=== PATIENT | female | born 1940 | race American Indian/Alaskan Native ===

== ENCOUNTER 2016-08-06 13:00 | Outpatient (CLI) | payer MEDICARE ==
[2016-08-06 13:59] LABS: Blood Urea Nitrogen 18 mg/dL (7-17)
--- NOTE | 2016-08-06 15:56 | Magnetic Resonance Report ---
MRI LUMBAR SPINE WITH AND WITHOUT CONTRAST HISTORY: Back pain, myalgia. TECHNIQUE: axial T1, T2. sagittal T1,T2, STIR. T1 fat-sat contrast imaging. COMPARISON: none. FINDINGS: The conus terminates at L1. No signal abnormality or mass. There is 4 mm anterolisthesis of L4 with respect to L5. No pars defect. This appears to be secondary to degenerative facet arthropathy. Normal height of the lumbar vertebra. The facet joints are in appropriate relationship. There is fatty change within the L5 vertebral body and superior sacrum which may be related to previous radiation therapy. Please correlate with the patient's history. No acute fracture or suspicious bone lesion. The paraspinal soft tissues are unremarkable. No abnormal enhancement following IV gadolinium. L1-2: No significant abnormality. L2-3: There is a moderate diffuse posterior bulging disc and moderate to large left paracentral disc and with mass effect on the thecal sac and nerve roots. Mild facet arthropathy and moderate hypertrophy ligamentum flavum. Moderate canal stenosis measuring 5-6 mm in AP dimension. Bilateral neural foraminal narrowing is estimated at 50%. L3-4: A mild circumferential bulging disc, mild facet arthropathy and mild hypertrophy ligamentum flavum are identified. There is mild central canal narrowing measuring 7 mm moderate bilateral neural foraminal narrowing estimated at 50%. The left side appears more affected. L4-5: Grade 1 anterolisthesis is again noted. There is no significant bulging disc. Moderate facet arthropathy and moderate hypertrophy of ligamentum flavum. Moderate severe central canal stenosis measuring 6-7 mm in AP dimension. Bilateral neural foraminal narrowing is estimated at 50%. L5-S1: No significant abnormality. IMPRESSION: Lumbar spondylosis as described. Grade 1 anterolisthesis of L4 with respect L5. Multilevel central canal narrowing as outlined above. L2-3 appears to be the most affected level where there is a moderate to large left paracentral disc protrusion.
== END 2016-08-06 13:01 | disposition home or self-care (01) ==
LOC: MRI 13:00
PROVIDERS: ATTEND General Practice
DX: M48.06 Spinal stenosis, lumbar region (principal); M12.88 Other specific arthropathies, not elsewhere classified, other specified site; M24.28 Disorder of ligament, vertebrae; C18.9 Malignant neoplasm of colon, unspecified; I10 Essential (primary) hypertension; E11.9 Type 2 diabetes mellitus without complications
CPT/HCPCS: 36415; 72158; 82565; 84520; A9577

== ENCOUNTER 2019-06-22 09:37 | Day surgery (SDC) | payer MEDICARE ==
[~2019-06-22 09:37] MED LIST: SODIUM CHLORIDE 0.9% 1000 ML 1,000 ML IV SCH
--- NOTE | 2019-06-22 10:33 | Anesthesia Consultation ---
Anesthesia Consult and Med Hx Date of service: 06/22/19 - Airway Anesthetic Teeth Evaluation: Dentures ROM Head & Neck: Adequate Mental/Hyoid Distance: Adequate Mallampati Class: Class III Intubation Access Assessment: Probably Good - Pulmonary Exam CTA: Yes - Cardiac Exam Cardiac Exam: RRR - Pre-Operative Health Status ASA Pre-Surgery Classification: ASA3 Proposed Anesthetic Plan: MAC - Pulmonary Hx Smoking: Yes (Former 3 PPD X 20 YRS, QUIT IN 1974) Hx Asthma: Yes (no recent inhaler use) Hx Sleep Apnea: No - Cardiovascular System Hx Hypertension: Yes Hx Heart Attack/AMI: Yes (6 yrs ago; follows with well logger. 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 Last dose ASA 06/20/2019.
--- NOTE | 2019-06-22 10:33 | Anesthesia Day of Surgery ---
Anesthesia Day of Surgery - Day of Surgery Patient Examined: Yes Patient H&P Reviewed: Yes Patient is NPO: Yes
[2019-06-22] MEDS ORDERED: WATER FOR IRRIG STERILE 250 ML BOTTLE IR ONE (10:41)
[2019-06-22] MEDS ORDERED: PROPOFOL 200 MG/20 ML VIAL IV ONE ×2 (10:48→13:22)
[2019-06-22] MEDS ORDERED: WATER FOR IRRIG STERILE 1,000 ML BOTTLE ONE (12:26)
[2019-06-22] MEDS ORDERED: LIDOCAINE MPF (2%) 20 MG/1 ML VIAL 5 ML ONE (13:00)
--- NOTE | 2019-06-22 13:31 | Operative Report ---
Operative Report Operative Report: Procedure: Colonoscopy with Multiple Snare polypectomies, submucosal injection with elevation of colon polyp. Attending physician: Iain Osman M.D. Coal Washer Tender: Iain Osman M.D. Indication: Patient is a 79-year-old female who presents for screening colonoscopy, because of family history of colon cancer. This colonoscopy serves to evaluate patient so that treatment may be directed based on the findings. Patient has a partial colon resection with a colostomy and is considering a rev ersal of the colostomy. Consent: Informed consent was obtained after advising the patient and family regarding nature of this procedure, its indications, potential benefits as well as possible complications including but not limited to bleeding perforation and adverse reaction to medication, infection as well as other cardiopulmonary complications. An informed written and verbal consent was then obtained after due opportunity was provided for questions and answers. Monitoring: Patient was monitored continuously with pulse oximetry and electrocardiographic recordings as well as blood pressure recordings. Vital signs remained stable throughout this procedure with no untoward events. Preoperative assessment: Patient was assessed immediately prior to this procedure for capacity to tolerate monitored anesthesia care and moderate sedation as well as general anesthesia. Patient's ASA classification is 2, Mallampati class is 2, Hyomental distance is 3. Instrument: Olympus video colonoscope.: CF-HQ 190L Medications: Propofol given intravenously in divided doses. For details please refer to anesthesia records. Description of procedure: Patient was placed in a supine position after achieving sedation, a digital inspection/ examination of the colostomy introitus was performed following which the colonoscope was introduced into the colon and advanced to the cecum which was identified by the cecal valve, the appendiceal orifice, as well as by the cecal strap and direct transillumination. The colonoscope was subsequently withdrawn with careful inspection of all mucosal surfaces. Patient tolerated this procedure well and was subsequently taken to the recovery room. The following findings were noted. Findings: The preparation was adequate. Patient had a flat polyp seen in the transverse colon measuring approximately 1 cm this was elevated with submucosal injection of saline and removed by snare electrocautery and retrieved. There was another sessile polyp measuring approximately 1 cm which again was easily removed by snare electrocautery and retrieved. In the ascending colon, there was a polyp measuring approximately 8 mm. This was flat. It was elevated with submucosal injection of saline and removed by snare electrocautery and retrieved. The colostomy appeared normal. There were no additional lesions seen. Impression: Ascending colon polyp status post snare polypectomy and submucosal injection Transverse colon polyp status post submucosal injection and snare polypectomy Transverse colon polyp status post snare polypectomy Plan: Follow pathology report. High-fiber diet. Additional recommendations would be made in close outpatient follow-up and depending on the pathology report.
--- NOTE | 2019-06-22 13:34 | Discharge Summary ---
Short Stay Discharge Plan Activity: advance as tolerated Weight Bearing Status: Weight Bear as Tolerated Diet: regular Follow up with: ANTIONE HAND MD [Primary Care Provider] - 7 Days
[2019-06-22 14:10] VITALS: BP 132/58
--- NOTE | 2019-06-22 14:20 | Post Anesthesia Evaluation ---
- Post Anesthesia Evaluation Patient Participated: Yes Airway Patent: Yes Stable Respiratory Function: Yes Nausea/Vomiting: No Temp > 96.8F: Yes Pain Manageable: Yes Adequeate Hydration: Yes Anesthesia Complications: No Block Receding Appropriately: Not Applicable Patient on Ventilator: No
== END 2019-06-22 09:38 | disposition home or self-care (01) ==
LOC: GIO 09:37
PROVIDERS: ATTEND Internal Medicine Gastroenterology
DX: Z12.11 Encounter for screening for malignant neoplasm of colon (principal); D12.3 Benign neoplasm of transverse colon; D12.2 Benign neoplasm of ascending colon; H40.9 Unspecified glaucoma; E78.00 Pure hypercholesterolemia, unspecified; I10 Essential (primary) hypertension; J45.909 Unspecified asthma, uncomplicated; M19.90 Unspecified osteoarthritis, unspecified site; E11.39 Type 2 diabetes mellitus with other diabetic ophthalmic complication; F32.9 Major depressive disorder, single episode, unspecified; Z98.890 Other specified postprocedural states; Z98.41 Cataract extraction status, right eye; Z98.42 Cataract extraction status, left eye; Z90.710 Acquired absence of both cervix and uterus; Z93.3 Colostomy status; Z80.0 Family history of malignant neoplasm of digestive organs; Z90.721 Acquired absence of ovaries, unilateral; Z85.048 Personal history of other malignant neoplasm of rectum, rectosigmoid junction, and anus
CPT/HCPCS: 45381; 45385; 82962; 88305; J2704; J7030